=== PATIENT | female | born 1970 ===

== ENCOUNTER 2017-10-22 17:21 | Emergency (ER) | payer OTHER ==
[2017-10-22 17:26] VITALS: TEMP 99.1; O2SAT 100
[2017-10-22] MEDS ORDERED: Naproxen 500 MG TAB PO STA (18:01)
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
[2017-10-22] MEDS ORDERED: Naproxen 500 MG TAB PO ONE (18:15)
[2017-10-22 19:46] VITALS: BP 143/85; PULSE 78; RESP 17
--- NOTE | 2017-10-23 08:30 | RAD ---
Date of service: 10/22/2017 PROCEDURE: Cervical Spine Radiographs. HISTORY: Pain. COMPARISON: None. FINDINGS: BONES: There is straightening of the cervical curvature without gross fracture or spondylolisthesis identified. The odontoid process appears intact. A small calcification is appreciate the anterior C7-T1 disc interspace anteriorly and is felt to be degenerative in origin. No adjacent cortical defect is appreciated related to the superior endplate of T1 to which this density is most closely associated. Local soft tissues are undisturbed as well. Minimal spondylosis appreciated at C6-7 and C7-T1. DISC SPACES: No significant disc height loss identified. SOFT TISSUES: No prevertebral soft tissue swelling. OTHER FINDINGS: None. IMPRESSION: Straightened cervical curvature without fracture or spondylolisthesis. Minimal inferior cervical spondylosis identified.
== END 2017-10-22 19:46 | disposition home or self-care (01) ==
LOC: H.ER 17:21
DX: S16.1XXA Strain of muscle, fascia and tendon at neck level, initial encounter (principal); M79.602 Pain in left arm; V43.52XA Car driver injured in collision with other type car in traffic accident, initial encounter; Y92.410 Unspecified street and highway as the place of occurrence of the external cause